=== PATIENT | female | born 1985 | race Caucasian/White ===

== ENCOUNTER 2020-05-07 19:06 | Emergency (ER) | payer SELFPAY ==
[~2020-05-07 19:06] MED LIST: Naloxone 2 MG/2 ML Syringe ONE
[2020-05-07] MEDS ORDERED: Sodium Chloride 0.9% 1,000 ML ONE (19:07)
[2020-05-07] MEDS ORDERED: Ketamine 500 mg/10 ML MDV ONE (19:11)
[2020-05-07] MEDS ORDERED: Midazolam 1 MG/ML 5 ML SDV ONE ×2 (19:11)
[2020-05-07] MEDS ORDERED: Succinylcholine 200 MG/10 ML MDV ONE (19:11)
[2020-05-07] MEDS ORDERED: Ondansetron 4 MG/2 ML SDV IVPUSH ONE (19:17)
[2020-05-07] MEDS ORDERED: Midazolam 5 MG/ML 10 ML MDV ONE (19:21)
[2020-05-07] MEDS ORDERED: Naloxone 2 MG/2 ML Syringe IVPUSH ONE (19:21)
[2020-05-07] MEDS ORDERED: Succinylcholine 200 MG/10 ML MDV IV ONE (19:21)
[2020-05-07] MEDS ORDERED: Sodium Chloride 0.9% 250 ML ONE (19:22)
[2020-05-07] MEDS ORDERED: Etomidate 2 MG/ML 20 ML SDV IVPUSH ONE (19:22)
[2020-05-07] MEDS ORDERED: fentaNYL 2500 MCG/50 ML SDV ONE (19:22)
[2020-05-07] MEDS ORDERED: Sodium Chloride 0.9% 50 ML ONE (19:23)
--- NOTE | 2020-05-07 19:23 | EDM.PDOC ---
ED HPI GENERAL MEDICAL PROBLEM - General Chief Complaint: Respiratory Problem Stated Complaint: OVERDOSE Time Seen by Provider: 05/07/20 19:17 Source of Information: Reports: Patient History Limitations: Reports: No Limitations - History of Present Illness INITIAL COMMENTS - FREE TEXT/NARRATIVE: 34-year-old female who is known to suffer from bipolar affective disorder and major depression. She presents to the ED brought in by her boyfriend who found her unresponsive at home. He drove an hour and a half to reach the hospital. He states that she went off her medications including antidepressants a week ago. At noon when he checked in on her she was sleeping. When he came on after work he could not arouse her. When she arrived in the ED she had very shallow faint carotid pulse. She was not breathing. She was bag mask ventilated and after IV start was given 2 mg of Narcan which she did respond to. She also unfortunately vomited as she was being attempted to be intubated suspect aspiration occurred of bilious food content. She was intubated with a 7.5 [place] ET tube to 23 cm the corner of her right lip. This was facilitated by 100 mg of succinylcholine IV and etomidate 20 mg IV. Subsequently was given Versed vecuronium 7 mg IV to maintain paralysis. Resuscitation efforts were carried out by myself and with the assistance of hospitalist Dr. Echevarria. Her boyfriend is fearful that she may have overdosed on multiple medications of which we have no knowledge. Onset: Unknown/Unsure Onset Date: 05/07/20 (last known well early this am. ) Duration: Hour(s):, Other ( arrives in the ED unresponsive. ) Location: Reports: Generalized Quality: Reports: Other (unresponsive with respiratory arrest. ) Severity: Severe Improves with: Reports: Other ( spontanesous breathing occurred afte Narcan 2mg iV was administerd. ) Context: Reports: Other (suspect overdose). Denies: Activity, Exercise, Lifting, Sick Contact, Trauma Associated Symptoms: Reports: Other (unresponsive. ) Treatments BOND UNDERWRITER: Reports: Other (see below) (unknown) - Related Data Allergies Allergy/AdvReac Type Severity Reaction Status Date / Time gluten Allergy Severe Other Verified 05/07/20 21:40 Past Medical History Cardiovascular History: Reports: Pacemaker (Lt upper anterior chest.) Neurological History: Reports: Seizure (Seizure disorder.) Psychiatric History: Reports: Bipolar, Depression, Emotional Problems, Psych Hospitalization(s), Suicidal Ideation Social & Family History - Living Situation & Occupation Occupation: Unemployed ED ROS GENERAL - Review of Systems Review Of Systems: Unable To Obtain Reason Not Obtained: patient unresponsive with respiratory arrest. ED EXAM, GENERAL - Physical Exam Exam: See Below Exam Limited By: Other (arrives in the ED unresponsive to physical or verbal stimuli with no evidence of breathing.Weak carotid pulse.) General Appearance: Other (unresponsive. respiratory arrest. ) Eye Exam: Bilateral Eye: PERRL (pupils were 3 mm and did not respond to light. ) Throat/Mouth: Normal Inspection, Normal Lips, Normal Teeth, Normal Oropharynx Head: Atraumatic, Normocephalic, Other ( no outward signs of head or facial trauma. ) Neck: Normal Inspection, Supple, Non-Tender, Full Range of Motion. No: Lymphadenopathy (L), Lymphadenopathy (R) Respiratory/Chest: Respiratory Distress ( no spontaneopus breathing at time of presentation to the ED. ) Cardiovascular: No JVD, Other ( very weak pulse in carotids at 35-40/min. ) Peripheral Pulses: 1+: Carotid (L), Carotid (R) GI/Abdominal: Soft, Non-Tender, No Organomegaly, Other (no evidence of obvious ) Extremities: Normal Inspection, Other Neurological: Unresponsive (to verbal and physical stimulation. ) Skin Exam: Warm, Dry, Intact, Normal Color, No Rash ED RESPIRATORY PROCEDURES - Endotracheal Intubation ET Intubation Indication: Airway Protection, Other (Scented with respiratory arrest likely due to narcotic overdose) Preparation: Suction, Balloon Tested, BVM Set Up Pre-Oxygenation: Assisted with BVM, 100% FiO2 Anesthesia Meds: Etomidate (20 mg), Succinylcholine (100 mg IV) Placement: Orotracheal, Uncomplicated Placement Cords Visualized: Grade 1 Number of Attempts: 1 Confirmed By: CO2 Indicator, Bilateral Breath Sounds, Chest Xray Tube Secured By: By RT Course - Orders/Labs/Meds Orders: Active Orders 24 hr Category Date Time Status EKG Documentation Completion [RC] STAT Care 05/07/20 19:18 Active CULTURE BLOOD [BC] Stat Lab 05/07/20 20:51 Received CULTURE BLOOD [BC] Stat Lab 05/07/20 20:57 Received Dextrose 5%-0.9% NaCl [Dextrose 5%-Normal Saline] 1,000 Med 05/07/20 19:30 Active ml IV ASDIRECTED Midazolam [Versed 5 MG/ML] 50 mg Med 05/07/20 22:00 Active Sodium Chloride 0.9% [Normal Saline] 40 ml IV TITRATE fentaNYL [Sublimaze] 2,500 mcg Med 05/07/20 22:00 Active Sodium Chloride 0.9% [Normal Saline] 200 ml IV TITRATE Blood Culture x2 Reflex Set [OM.PC] Stat Oth 05/07/20 19:20 Ordered Medication Orders Dextrose/Sodium Chloride (Dextrose 5%-Normal Saline) 1,000 mls @ 500 mls/hr IV ASDIRECTED BEE Fentanyl 2,500 mcg/ Sodium (Chloride) 250 mls @ 6.5 mls/hr IV TITRATE BEE; Protocol Midazolam HCl 50 mg/ Sodium (Chloride) 50 mls @ 1.3 mls/hr IV TITRATE BEE; Protocol Labs: Laboratory Tests 05/07/20 05/07/20 05/07/20 Range/Units 19:18 19:20 19:20 WBC 6.71 (3.98-10.04) K/mm3 RBC 4.11 (3.98-5.22) M/mm3 Hgb 13.6 (11.2-15.7) gm/dl Hct 40.1 (34.1-44.9) % MCV 97.6 H (79.4-94.8) fl MCH 33.1 H (25.6-32.2) pg MCHC 33.9 (32.2-35.5) g/dl RDW Std Deviation 42.9 (36.4-46.3) fL Plt Count 258 (182-369) K/mm3 MPV 10.2 (9.4-12.3) fl Neut % (Auto) 80.5 H (34.0-71.1) % Lymph % (Auto) 11.6 L (19.3-51.7) % [place] % (Auto) 6.7 (4.7-12.5) % Eos % (Auto) 1.0 (0.7-5.8) Baso % (Auto) 0.1 (0.1-1.2) % Neut # (Auto) 5.39 (1.56-6.13) K/mm3 Lymph # (Auto) 0.78 L (1.18-3.74) K/mm3 [place] # (Auto) 0.45 H (0.24-0.36) K/mm3 Eos # (Auto) 0.07 (0.04-0.36) K/mm3 Baso # (Auto) 0.01 (0.01-0.08) K/mm3 PT 10.6 (9.7-11.7) SECONDS INR 0.99 Puncture Site Rt radial ABG pH 7.36 (7.35-7.45) ABG pCO2 40.4 (35.0-45.0) mmHg ABG pO2 429.0 H* (80.0-100.0) mmHg ABG HCO3 22.5 (22.0-26.0) meq/L ABG O2 Saturation 100.0 H (96.0-97.0) % ABG Base Excess -2.2 L (-2-2.0) Oxygen Flow Rate 15.0 Sodium (136-145) mEq/L Potassium (3.5-5.1) mEq/L Chloride (98-107) mEq/L Carbon Dioxide (21-32) mEq/L Anion Gap (5-15) BUN (7-18) mg/dL Creatinine (0.55-1.02) mg/dL Est Cr Clr Drug Dosing Estimated GFR (MDRD) (>60) mL/min BUN/Creatinine Ratio (14-18) Glucose (74-106) mg/dL POC Glucose (70-105) mg/dL Lactic Acid (0.4-2.0) mmol/L Calcium (8.5-10.1) mg/dL Magnesium (1.8-2.4) mg/dl Total Bilirubin (0.2-1.0) mg/dL AST (15-37) U/L ALT (14-59) U/L Alkaline Phosphatase (46-116) U/L CK-MB (CK-2) (0-3.6) ng/ml Troponin I (0.00-0.056) ng/mL C-Reactive Protein (<1.0) mg/dL NT-Pro-B Natriuret Pep (0-125) pg/mL Total Protein (6.4-8.2) g/dl Albumin (3.4-5.0) g/dl Globulin gm/dL Albumin/Globulin Ratio (1-2) HCG, Qual (NEGATIVE) Salicylates (2.8-20) mg/dL Acetaminophen (10-30) ug/mL Ethyl Alcohol (0.00) gm% SARS-CoV-2 RNA (ANAI) (NEGATIVE) 05/07/20 05/07/20 05/07/20 Range/Units 19:20 19:20 19:20 WBC (3.98-10.04) K/mm3 RBC (3.98-5.22) M/mm3 Hgb (11.2-15.7) gm/dl Hct (34.1-44.9) % MCV (79.4-94.8) fl MCH (25.6-32.2) pg MCHC (32.2-35.5) g/dl RDW Std Deviation (36.4-46.3) fL Plt Count (182-369) K/mm3 MPV (9.4-12.3) fl Neut % (Auto) (34.0-71.1) % Lymph % (Auto) (19.3-51.7) % [place] % (Auto) (4.7-12.5) % Eos % (Auto) (0.7-5.8) Baso % (Auto) (0.1-1.2) % Neut # (Auto) (1.56-6.13) K/mm3 Lymph # (Auto) (1.18-3.74) K/mm3 [place] # (Auto) (0.24-0.36) K/mm3 Eos # (Auto) (0.04-0.36) K/mm3 Baso # (Auto) (0.01-0.08) K/mm3 PT (9.7-11.7) SECONDS INR Puncture Site ABG pH (7.35-7.45) ABG pCO2 (35.0-45.0) mmHg ABG pO2 (80.0-100.0) mmHg ABG HCO3 (22.0-26.0) meq/L ABG O2 Saturation (96.0-97.0) % ABG Base Excess (-2-2.0) Oxygen Flow Rate Sodium 137 (136-145) mEq/L Potassium 5.1 (3.5-5.1) mEq/L Chloride 103 (98-107) mEq/L Carbon Dioxide 26 (21-32) mEq/L Anion Gap 13.1 (5-15) BUN 24 H (7-18) mg/dL Creatinine 2.1 H (0.55-1.02) mg/dL Est Cr Clr Drug Dosing TNP Estimated GFR (MDRD) 27 (>60) mL/min BUN/Creatinine Ratio 11.4 L (14-18) Glucose 129 H (74-106) mg/dL POC Glucose (70-105) mg/dL Lactic Acid 1.3 (0.4-2.0) mmol/L Calcium 9.0 (8.5-10.1) mg/dL Magnesium 2.2 (1.8-2.4) mg/dl Total Bilirubin 0.5 (0.2-1.0) mg/dL AST 27 (15-37) U/L ALT 45 (14-59) U/L Alkaline Phosphatase 50 (46-116) U/L CK-MB (CK-2) 6.0 H (0-3.6) ng/ml Troponin I < 0.017 (0.00-0.056) ng/mL C-Reactive Protein 0.3 (<1.0) mg/dL NT-Pro-B Natriuret Pep (0-125) pg/mL Total Protein 6.4 (6.4-8.2) g/dl Albumin 3.6 (3.4-5.0) g/dl Globulin 2.8 gm/dL Albumin/Globulin Ratio 1.3 (1-2) HCG, Qual (NEGATIVE) Salicylates 0.2 L (2.8-20) mg/dL Acetaminophen 11 (10-30) ug/mL Ethyl Alcohol 0.00 (0.00) gm% SARS-CoV-2 RNA (ANAI) (NEGATIVE) 05/07/20 05/07/20 05/07/20 Range/Units 19:20 19:48 20:05 WBC (3.98-10.04) K/mm3 RBC (3.98-5.22) M/mm3 Hgb (11.2-15.7) gm/dl Hct (34.1-44.9) % MCV (79.4-94.8) fl MCH (25.6-32.2) pg MCHC (32.2-35.5) g/dl RDW Std Deviation (36.4-46.3) fL Plt Count (182-369) K/mm3 MPV (9.4-12.3) fl Neut % (Auto) (34.0-71.1) % Lymph % (Auto) (19.3-51.7) % [place] % (Auto) (4.7-12.5) % Eos % (Auto) (0.7-5.8) Baso % (Auto) (0.1-1.2) % Neut # (Auto) (1.56-6.13) K/mm3 Lymph # (Auto) (1.18-3.74) K/mm3 [place] # (Auto) (0.24-0.36) K/mm3 Eos # (Auto) (0.04-0.36) K/mm3 Baso # (Auto) (0.01-0.08) K/mm3 PT (9.7-11.7) SECONDS INR Puncture Site ABG pH (7.35-7.45) ABG pCO2 (35.0-45.0) mmHg ABG pO2 (80.0-100.0) mmHg ABG HCO3 (22.0-26.0) meq/L ABG O2 Saturation (96.0-97.0) % ABG Base Excess (-2-2.0) Oxygen Flow Rate Sodium (136-145) mEq/L Potassium (3.5-5.1) mEq/L Chloride (98-107) mEq/L Carbon Dioxide (21-32) mEq/L Anion Gap (5-15) BUN (7-18) mg/dL Creatinine (0.55-1.02) mg/dL Est Cr Clr Drug Dosing Estimated GFR (MDRD) (>60) mL/min BUN/Creatinine Ratio (14-18) Glucose (74-106) mg/dL POC Glucose 103 (70-105) mg/dL Lactic Acid (0.4-2.0) mmol/L Calcium (8.5-10.1) mg/dL Magnesium (1.8-2.4) mg/dl Total Bilirubin (0.2-1.0) mg/dL AST (15-37) U/L ALT (14-59) U/L Alkaline Phosphatase (46-116) U/L CK-MB (CK-2) (0-3.6) ng/ml Troponin I (0.00-0.056) ng/mL C-Reactive Protein (<1.0) mg/dL NT-Pro-B Natriuret Pep 44 (0-125) pg/mL Total Protein (6.4-8.2) g/dl Albumin (3.4-5.0) g/dl Globulin gm/dL Albumin/Globulin Ratio (1-2) HCG, Qual Negative (NEGATIVE) Salicylates (2.8-20) mg/dL Acetaminophen (10-30) ug/mL Ethyl Alcohol (0.00) gm% SARS-CoV-2 RNA (ANAI) Negative (NEGATIVE) Meds: Medications Generic Name Dose Route Start Last Admin Trade Name Freq PRN Reason Stop Dose Admin Dextrose/Sodium Chloride 1,000 mls @ 500 mls/hr 05/07/20 19:30 Dextrose 5%-Normal Saline IV ASDIRECTED BEE Fentanyl 2,500 mcg/ Sodium 250 mls @ 6.5 mls/hr 05/07/20 22:00 Chloride IV TITRATE BEE Protocol 1 MCG/KG/HR Midazolam HCl 50 mg/ Sodium 50 mls @ 1.3 mls/hr 05/07/20 22:00 Chloride IV TITRATE BEE Protocol 0.02 MG/KG/HR Discontinued Medications Generic Name Dose Route Start Last Admin Trade Name Freq PRN Reason Stop Dose Admin Etomidate 20 mg 05/07/20 19:22 Amidate IVPUSH 05/07/20 19:23 ONETIME ONE Fentanyl Confirm 05/07/20 19:22 Sublimaze Administered 05/07/20 19:23 Dose 2,500 mcg .ROUTE .STK-MED ONE Midazolam HCl 50 mg/ Sodium 50 mls @ 1.3 mls/hr 05/07/20 19:30 Chloride IV TITRATE BEE Protocol 0.02 MG/KG/HR Fentanyl 2,500 mcg/ Sodium 250 mls @ 6.5 mls/hr 05/07/20 19:30 Chloride IV TITRATE BEE Protocol 1 MCG/KG/HR Sodium Chloride Confirm 05/07/20 19:22 Normal Saline Administered 05/07/20 19:23 Dose 250 mls @ as directed .ROUTE .STK-MED ONE Sodium Chloride Confirm 05/07/20 19:23 Normal Saline Administered 05/07/20 19:24 Dose 50 mls @ as directed .ROUTE .STK-MED ONE Dextrose/Water Confirm 05/07/20 19:39 Dextrose 5% In Water Administered 05/07/20 19:40 Dose 250 mls @ as directed .ROUTE .STK-MED ONE Fentanyl 2,500 mcg/ Sodium 250 mls @ 6.5 mls/hr 05/07/20 19:45 Chloride IV TITRATE BEE Protocol 1 MCG/KG/HR Midazolam HCl 50 mg/ Sodium 50 mls @ 1.3 mls/hr 05/07/20 21:15 Chloride IV TITRATE BEE Protocol 0.02 MG/KG/HR Midazolam HCl Confirm 05/07/20 19:21 Versed 5 Mg/Ml Administered 05/07/20 19:22 Dose 50 mg .ROUTE .STK-MED ONE Naloxone HCl 2 mg 05/07/20 19:21 Narcan IVPUSH 05/07/20 19:22 ONETIME ONE Norepinephrine Bitartrate Confirm 05/07/20 19:38 Levophed Administered 05/07/20 19:39 Dose 4 mg .ROUTE .STK-MED ONE Ondansetron HCl 4 mg 05/07/20 19:17 Zofran IVPUSH 05/07/20 19:18 ONETIME ONE Succinylcholine Chloride 100 mg 05/07/20 19:21 Quelicin IV 05/07/20 19:22 ONETIME ONE - Radiology Interpretation Free Text/Narrative:: Carried into the emergency department by her boyfriend who found her unresponsive to verbal and physical stimulation almost an hour and a half away from the hospital. He states he checked on her at noon and she was in bed sleeping. He did not wake her. She was alert and oriented this morning. He reports that she went off all of her antidepressant medication about a week ago. She has been exhibiting some signs of increased depressive symptoms according to him. It is unclear but it appears that she is overdosed on multiple medications. Upon arrival she was unresponsive to verbal and physical stimulation. She was not making any spontaneous respiratory movement. Very weak carotid pulse at 35 to 40/min. She was treated with oxygen by bag mask ventilation until IV could be established. She was given 2 mg of Narcan IV. At the same time preparation was being made for intubation with 7.5 [place] ET tube. She was given 2 mg of Narcan IV to which she did respond by promptly awakening with return of spontaneous respiratory effort but unfortunately acute emesis of bilious stained food. She was suctioned vigorously and turned onto her right side. Oropharynx was continued to be suctioned and then she did undergo intubation with the aid of succinylcholine 100 mg IV and etomidate 20 mg IV first attempt with a 7.5 [place] ET tube 23 cm corner of the right lip. She has a pacemaker left upper anterior chest. Heart rate returned to the 70s. Blood pressure returned to 95 systolic. two IV`s established with normal saline at open. Central line Rt IJ to be placed by Dr Echevarria --hospitalist assisting with management. She will be started on Fentanyl and Versed drip and levophed drip. CXR portable. Routine labs including Covid 19 screen. ABG`s as well. - Re-Assessments/Exams Free Text/Narrative Re-Assessment/Exam: 05/07/20 20:12 White count is 6.71. Differential is 80.5% neutrophils. Hemoglobin 13.6 with hematocrit of 40.1. MCV is elevated at 97.6. Platelet count 2 and 58,000. PT is 10.6 with an INR of 0.99. ABGs revealed a pH of 7.36 PCO2 of 40.4 PO2 429. This with with O2 saturation of 100% oxygen flow rate 15 L/min. Sodium 137 potassium high normal at 5.1. Chloride 103 with a bicarb of 26. Anion gap is 13.1 BUN is 24 with a creatinine of 2.1. Estimated GFR is 27 I stage IV renal insufficiency. BUN/creatinine ratio is 11.4. Glucose slightly elevated 129. Bedside glucose was 103. Lactic acid 1.3. Calcium 9.0. Magnesium 2.20 liver function normal. CK-MB 6.0. Troponin I less than 0.017. C-reactive protein 0.3 . BNP is 44. Total protein 6.4 with an albumin fraction of 3.6. hCG serum is pending. Acetaminophen level is 11 ethyl alcohol is 0.00. Urine drug screen pending 05/07/20 20:16 CXR reveals no signs of aspiration. ET tube 2 cm above the yash. central line Rt IJ in the RT superior vena cava. Pacemaker Lt upper anterior chest . Vent settings . rate of 12 with FIO2 of 50% . tidal volume of 350. PEEP of 6. 02 sats are 100%. MAP has been in the 70 range on average. 05/07/20 20:45; Care has been accepted at [facility] in [place]-- telephone solicitor Dr Cano --has accepted care. Tentatively she will be transported per ground ambulance. 05/07/20 21:25 COVID-19 screen is negative. Patient will tentatively transferred to [facility] per ground ambulance. 05/07/20 22:00: Patient is becoming more restless and fighting the ET tube and vent. Will recieve rocuronium 40 mg IV. Med list has been compiled by nursing staff. Reports that she is on clonazepam 10 mg daily ibuprofen 800 mg up to 3 times daily propanolol 20 mg once daily Lamictal 150 mg daily. Vitals of Kellogg 5/325 mg from December 20182018 and May 2019 are empty. Limit to 150 mg strength filled through October 2019 has mixed pills above Lamictal 100 mg on June 30 and October 2017 2 full bottles present. Prescription for Kelli Doradoder bottles present Zofran and ibuprofen. Departure - Departure Time of Disposition: 22:10 Disposition: DC/Tfer to Acute Hospital 02 Condition: Serious Clinical Impression: Respiratory arrest on examination, Intentional overdose of drug in tablet form, Opioid overdose - Discharge Information *PRESCRIPTION DRUG MONITORING PROGRAM REVIEWED*: Not Applicable *COPY OF PRESCRIPTION DRUG MONITORING REPORT IN PATIENT PILY: Not Applicable Referrals: PCP,Unknown [Ordering Only Provider] - Forms: ED Department Discharge Additional Instructions: Patient transferred to intensive care unit at [facility] in [place] under the care of Dr. Cano--tensive visit. Patient arrived in the ED unresponsive to verbal and physical stimuli with no respiratory effort a diagnosis acute respiratory arrest with faint pulse present 35 to 40/min at the carotid. Aggressive resuscitation efforts were undertaken. Patient responded to Narcan 2 mg IV with arousal from unresponsive state with prompt vomiting of bilious stained food material which was suctioned vigorously from her oropharynx. She was intubated with 7.5 ET tube to protect her airway. It appears that she is overdosed intentionally on perhaps a multitude of medications including antiseizure medications Lamictal and gabapentin and clobazam. She also had Kellogg 5 325 mg tablets in her bag which is an old prescription from 2018. Boyfriend is unclear when she may have taken these medications but she was last known well to early this morning. She apparently stopped all of her antidepressant medications 1 week ago. History of bipolar affective disorder. History of seizure disorder. History of pacemaker left upper anterior chest for unknown reason. Critical Care Note - Critical Care Note Total Time (mins): 60 - My Orders Last 24 Hours: My Active Orders 05/07/20 19:18 EKG Documentation Completion [RC] STAT 05/07/20 19:20 Blood Culture x2 Reflex Set [OM.PC] Stat 05/07/20 19:30 Dextrose 5%-0.9% NaCl [Dextrose 5%-Normal Saline] 1,000 ml IV ASDIRECTED 05/07/20 20:51 CULTURE BLOOD [BC] Stat 05/07/20 20:57 CULTURE BLOOD [BC] Stat 05/07/20 22:00 Midazolam [Versed 5 MG/ML] 50 mg Sodium Chloride 0.9% [Normal Saline] 40 ml IV TITRATE fentaNYL [Sublimaze] 2,500 mcg Sodium Chloride 0.9% [Normal Saline] 200 ml IV TITRATE - Assessment/Plan Last 24 Hours: My Active Orders 05/07/20 19:18 EKG Documentation Completion [RC] STAT 05/07/20 19:20 Blood Culture x2 Reflex Set [OM.PC] Stat 05/07/20 19:30 Dextrose 5%-0.9% NaCl [Dextrose 5%-Normal Saline] 1,000 ml IV ASDIRECTED 05/07/20 20:51 CULTURE BLOOD [BC] Stat 05/07/20 20:57 CULTURE BLOOD [BC] Stat 05/07/20 22:00 Midazolam [Versed 5 MG/ML] 50 mg Sodium Chloride 0.9% [Normal Saline] 40 ml IV TITRATE fentaNYL [Sublimaze] 2,500 mcg Sodium Chloride 0.9% [Normal Saline] 200 ml IV TITRATE
[2020-05-07] MEDS ORDERED: fentaNYL 2,500 MCG in Sodium Chloride 0.9% 200 ML IV SCH ×3 (19:30→22:00)
[2020-05-07] MEDS ORDERED: Midazolam 50 MG in Sodium Chloride 0.9% 40 ML IV SCH ×3 (19:30→22:00)
[2020-05-07] MEDS ORDERED: Dextrose 5%-0.9% NaCl 1,000 ML IV SCH (19:30)
[2020-05-07] MEDS ORDERED: Norepinephrine 4 MG/4 ML SDV ONE (19:38)
[2020-05-07] MEDS ORDERED: Dextrose 5% in Water 250 ML ONE (19:39)
[2020-05-07 20:06] LABS: ACETAMINOPHEN 11 ug/mL (10-30)
--- NOTE | 2020-05-07 20:35 | CR ---
Chest: Portable view of the chest was obtained. Comparison: No prior chest imaging. Heart size and mediastinum are normal. Lungs are clear with no acute parenchymal change. Nasogastric tube is seen. Tip courses off the inferior edge of the film into the stomach. Right jugular line is seen with tip lying near the right atrial and superior vena cava junction. Endotracheal tube is seen with end lying slightly past the inferior level of clavicles in satisfactory position. Bony structures are grossly intact. Impression: 1. Satisfactory position of tubes and catheters as noted above. 2. Nothing acute is otherwise seen on supine chest x-ray. Diagnostic code #3 Study was dictated in MDT
--- NOTE | 2020-05-07 20:51 | PCM.PR.CLI ---
Central Line Insertion - Central Line Insertion Site: internal jugular (R) Prep: CDC/MBT Guidelines, Sterile Drapes, Chlorhexidine Lumen: triple Gauge: 7Fr Local Anesthesia - Lidocaine (Xylocaine): 1% Plain Local Anesthetic Volume: 2cc Ultrasound guided: Yes Micropuncture kit used: Yes CL Complications: No Secured with suture: Yes Post placement confirmation: CXR, all ports aspirated, all ports flushed CXR post-procedure: no pneumothorax, no hemothorax Dressing applied: by provider Central line comment: Time of procedure: 19:40-19:48 Indication: Refractory hypotension and need for vasopressor use Estimated blood loss: 3mL Tolerated procedure well without complications
[2020-05-07] MEDS ORDERED: Rocuronium 50 MG/5 ML Vial ONE (22:05)
== END 2020-05-07 22:13 ==
LOC: JD.ED 19:06
DX: T40.2X2A Poisoning by other opioids, intentional self-harm, initial encounter (principal); R09.2 Respiratory arrest; Z91.018 Allergy to other foods; Z95.0 Presence of cardiac pacemaker; Z20.828 Contact with and (suspected) exposure to other viral communicable diseases
CPT/HCPCS: 31500; 36415; 36556; 36600; 71045; 80053; 80307; 82553; 82803; 82962; 83605; 83735; 83880; 84484; 84703; 85025; 85610; 86140; 87040; 87635; 93005; 99285; J0330; J2250; J2310; J3010; J7030; J7050; J7060; J7120; 93010; 99291; J3490; U0002